=== PATIENT | male | born 1970 | race Caucasian/White ===

== ENCOUNTER 2024-07-17 18:37 | Inpatient (IN) ==
[2024-07-17] MEDS: Dextrose 50% Syringe 50 ml 25 GM/50 ML SYRINGE IV PUSH PRN (18:40)
[2024-07-17] MEDS: Norepinephrine 4 MG/250mL D5W 4,000 MCG/250 ML BAG IV SCH (19:05)
[2024-07-17 19:25] LABS: Hematocrit 31.9 % (38-53); Hemoglobin 10.9 g/dL (13.2-16.3); Mean Corpuscular Hemoglobin 34.2 pg (27-33); Mean Corpuscular Hgb Conc 34.3 g/dL (31-36); Mean Corpuscular Volume 99.7 fL (80-97); Red Cell Distribution Width 16.7 % (12-17); White Blood Count 9.3 10^3/uL (3.6-10.2)
[2024-07-17] MEDS: VASOPRESSIN IVPREMIX BTL 40 UNIT/100 ML BTL IV ONE (19:28)
[2024-07-17] MEDS: VASOPRESSIN IVPREMIX BTL 40 UNIT/100 ML BTL IV SCH (19:29)
[2024-07-17] MEDS: Piperacillin/Tazobac 3.375 BAG 3.375 GM/100 ML BAG IV ONE (19:39)
[2024-07-17 19:42] LABS: High Sens Troponin Baseline 10066 pg/mL (<20)
[2024-07-17 19:43] LABS: Activated Partial Thrombo Time 38.2 seconds (26.0-38.0); INR 2.43 (0.85-1.14)
[2024-07-17] MEDS ORDERED: Zosyn per Pharmacy NOTE FOLLOW UP SCH (20:00)
[2024-07-17] MEDS ORDERED: Vancomycin per Pharmacy 1 EA NOTE FOLLOW UP SCH (20:00)
[2024-07-17 20:12] LABS: Anion Gap 20 mmol/L (2-16); Blood Urea Nitrogen 12 mg/dL (6-24); CO2 Carbon Dioxide 14 mmol/L (22-32); Calcium 7.2 mg/dL (8.6-10.3); Chloride 102 mmol/L (101-111); Creatinine, Serum 2.12 mg/dL (0.67-1.17); Glucose 109 mg/dL (70-100); Sodium 136 mmol/L (135-145); eGFR CKD-EPI 36.8 (>60)
[2024-07-17 20:13] LABS: ALT 341 U/L (7-52); Albumin 3.1 g/dL (3.5-5.7); Albumin/Globulin Ratio 1.2 (1-3); Alkaline Phosphatase 142 U/L (35-149); Globulin 2.5 g/dL (2-4); Magnesium 2.2 mg/dL (1.9-2.7); Total Bilirubin 10.2 mg/dL (0.2-1.0); Total Protein 5.6 g/dL (6.4-8.9)
[2024-07-17 20:23] LABS: Resp Rate 25
[2024-07-17] MEDS: Pantoprazole VIAL 40 MG VIAL IV SCH (20:23)
[2024-07-17 20:25] LABS: PCO2 Arterial 31 mmHg (35-45); PO2 Arterial 108 mmHg (80-100)
[2024-07-17 20:37] LABS: ABS Lymphocytes 0.4 10^3/uL (1.0-4.8); ABS Monocytes 0.5 10^3/uL (0.0-1.1); ABS Neutrophils 8.3 10^3/uL (1.5-7.6); ABS Nucleated RBC 0.06 10^3/ul; Anisocytosis 1+; Eosinophil % 0.1 %; Lymphocyte % 4.7 %; Mean Platelet Volume 9.3 fL (7.5-11.2); Nucleated Red Blood Cells % 0.7 %/100WBC (0.0-0.8); Platelet Count 24 10^3/uL (150-450); Polychromasia 1+; Target Cells 1+
[2024-07-17] MEDS: Hydrocortisone INJ 100 MG/2ML 2 ML VIAL IV ONE (20:38)
[2024-07-17 21:11] LABS: Phosphorus 7.7 mg/dL (2.5-5.0); Potassium Redraw 4.7 mmol/L (3.5-5.0)
[2024-07-17] MEDS: Vancomycin 1,500 MG in NS 0.9% 250 ml 250 ML IVPB ONE (21:13)
[2024-07-17] MEDS ORDERED: Thiamine 100 MG/ML 2 ml VIAL (200 mg) IV SCH (22:00)
[2024-07-17 22:20] LABS: Hematocrit 35.5 % (38-53); Hemoglobin 11.7 g/dL (13.2-16.3); Mean Corpuscular Hemoglobin 32.9 pg (27-33); Mean Corpuscular Hgb Conc 32.9 g/dL (31-36); Mean Corpuscular Volume 99.8 fL (80-97); Platelet Count 26 10^3/uL (150-450); Red Blood Count 3.56 10^6/uL (4.06-5.63); Red Cell Distribution Width 16.9 % (12-17); White Blood Count 8.7 10^3/uL (3.6-10.2)
[2024-07-17] MEDS ORDERED: Midazolam 5 mg/5 ml VIAL 1 mg/ml 5 ml VIAL (5 mg) IV SLOW PU PRN (22:31)
[2024-07-17] MEDS: Chlorhexidine MOUTHWASH 0.12% 15 ML UDC TOPICAL SCH (22:33)
[2024-07-17 22:42] LABS: ABS Lymphocytes 0.4 10^3/uL (1.0-4.8); ABS Monocytes 0.4 10^3/uL (0.0-1.1); ABS Neutrophils 7.9 10^3/uL (1.5-7.6); ABS Nucleated RBC 0.07 10^3/ul; Eosinophil % 0.2 %; Nucleated Red Blood Cells % 0.8 %/100WBC (0.0-0.8)
[2024-07-17] MEDS: Phytonadione IV (Adult) 10 MG in NS 0.9% 50 ML 50 ML IV ONE (22:55)
[2024-07-17] MEDS: Folic Acid IV 1 MG in NS 0.9% 50 ML 50 ML IV SCH (23:44)
[2024-07-17] MEDS: Thiamine IV 100 MG in NS 0.9% 50 ML Q24H IV SCH (23:46)
[2024-07-18] MEDS: ZOSYN 3.375 GM Q8H per EXTENDED INFUSION IV SCH (00:43)
[2024-07-18 01:27] LABS: Hematocrit 34.2 % (38-53); Hemoglobin 11.4 g/dL (13.2-16.3); Mean Corpuscular Hemoglobin 33.3 pg (27-33); Mean Corpuscular Hgb Conc 33.2 g/dL (31-36); Mean Corpuscular Volume 100.3 fL (80-97); Red Blood Count 3.41 10^6/uL (4.06-5.63); Red Cell Distribution Width 16.8 % (12-17); White Blood Count 10.3 10^3/uL (3.6-10.2)
[2024-07-18 01:28] LABS: ABS Lymphocytes 0.2 10^3/uL (1.0-4.8); ABS Monocytes 0.6 10^3/uL (0.0-1.1); ABS Neutrophils 9.5 10^3/uL (1.5-7.6); ABS Nucleated RBC 0.09 10^3/ul; Eosinophil % 0.1 %; Mean Platelet Volume 9.7 fL (7.5-11.2); Nucleated Red Blood Cells % 0.9 %/100WBC (0.0-0.8); Platelet Count 25 10^3/uL (150-450)
[2024-07-18 01:50] VITALS: BP 98/60
[2024-07-18] MEDS ORDERED: D10W 1000 ml BAG 1,000 ML IV SCH (02:00)
[2024-07-18] MEDS: Polyethyl Glycol/Propylene Gly OPHTH.SOLN BOTH EYES SCH (02:20)
[2024-07-18] MEDS: D10W 1000 ml BAG 1,000 ML IV SCH (02:20)
[2024-07-18] MEDS: Octreotide Acetate 50 MCG in NS 0.9% 50 ML 50 ML IV ONE (03:46)
[2024-07-18] MEDS: Octreotide Acetate 500 MCG in NS 0.9% 100 ml BAG 100 ML IV SCH (04:01)
[2024-07-18 04:38] LABS: Resp Rate 25
[2024-07-18 04:40] LABS: PCO2 Arterial 33 mmHg (35-45); PO2 Arterial 75 mmHg (80-100)
[2024-07-18 04:46] LABS: ABS Lymphocytes 0.3 10^3/uL (1.0-4.8); ABS Neutrophils 10.7 10^3/uL (1.5-7.6); ABS Nucleated RBC 0.16 10^3/ul; Eosinophil % 0.2 %; Hematocrit 33.8 % (38-53); Lymphocyte % 2.8 %; Mean Corpuscular Hemoglobin 32.6 pg (27-33); Mean Corpuscular Hgb Conc 32.4 g/dL (31-36); Mean Corpuscular Volume 100.7 fL (80-97); Mean Platelet Volume 9.8 fL (7.5-11.2); Nucleated Red Blood Cells % 1.3 %/100WBC (0.0-0.8); Platelet Count 28 10^3/uL (150-450); Red Blood Count 3.36 10^6/uL (4.06-5.63); Red Cell Distribution Width 17.1 % (12-17); White Blood Count 12.1 10^3/uL (3.6-10.2)
[2024-07-18] MEDS: D5LR 1000 ml BAG 1,000 ML IV SCH (05:15)
[2024-07-18] MEDS: Hydrocortisone INJ 100 MG/2ML 2 ML VIAL IV SCH (05:21)
[2024-07-18 05:25] LABS: Calcium 6.5 mg/dL (8.6-10.3); Creatinine, Serum 3.29 mg/dL (0.67-1.17); Potassium 5.4 mmol/L (3.5-5.0); eGFR CKD-EPI 21.7 (>60)
[2024-07-18 05:29] LABS: Albumin 3.2 g/dL (3.5-5.7); Albumin/Globulin Ratio 1.2 (1-3); Globulin 2.6 g/dL (2-4); Magnesium 2.2 mg/dL (1.9-2.7); Phosphorus 8.9 mg/dL (2.5-5.0); Total Bilirubin 14.7 mg/dL (0.2-1.0); Total Protein 5.8 g/dL (6.4-8.9)
[2024-07-18 07:42] LABS: INR 3.54 (0.85-1.14)
[2024-07-18 08:25] LABS: Blood Urea Nitrogen 19 mg/dL (6-24); CO2 Carbon Dioxide 17 mmol/L (22-32); Calcium 6.3 mg/dL (8.6-10.3); Chloride 100 mmol/L (101-111); Creatinine, Serum 3.69 mg/dL (0.67-1.17); Glucose 92 mg/dL (70-100); Sodium 136 mmol/L (135-145); eGFR CKD-EPI 18.9 (>60)
[2024-07-18 08:26] LABS: Magnesium 2.2 mg/dL (1.9-2.7)
[2024-07-18 08:27] LABS: Anion Gap 19 mmol/L (2-16)
[2024-07-18] MEDS: Sulfur Hexaflouride MICROSPHR 25 MG VIAL IV PRN (08:57)
[2024-07-18] MEDS: Phytonadione IV (Adult) 10 MG in NS 0.9% 50 ML 50 ML IV ONE (09:39)
[2024-07-18 09:55] LABS: Hematocrit 34.2 % (38-53); Hemoglobin 11.1 g/dL (13.2-16.3); Mean Corpuscular Hemoglobin 33.1 pg (27-33); Mean Corpuscular Hgb Conc 32.4 g/dL (31-36); Mean Corpuscular Volume 102.3 fL (80-97); Red Blood Count 3.34 10^6/uL (4.06-5.63); Red Cell Distribution Width 17.4 % (12-17); White Blood Count 13.4 10^3/uL (3.6-10.2)
[2024-07-18 10:01] LABS: Mean Platelet Volume 9.7 fL (7.5-11.2); Platelet Count 31 10^3/uL (150-450)
[2024-07-18 10:32] LABS: ABS Lymphocytes 0.4 10^3/uL (1.0-4.8); ABS Monocytes 1.1 10^3/uL (0.0-1.1); ABS Neutrophils 11.9 10^3/uL (1.5-7.6); ABS Nucleated RBC 0.25 10^3/ul; Macrocytosis 1+; Nucleated Red Blood Cells % 1.9 %/100WBC (0.0-0.8)
[2024-07-18 11:26] LABS: Osmolality Serum 308 mOsm/kg (275-295)
[2024-07-18] MEDS: Dextrose 50% Syringe 50 ml 25 GM/50 ML SYRINGE IV PUSH ONE ×2 (11:42→17:10)
[2024-07-18] MEDS: CALCIUM GLUCONATE 1GM/50ML NS 1 GM/50 ML BAG IV ONE ×2 (11:47→16:55)
[2024-07-18] MEDS: Sodium Bicarbonate 8.4% IV 150 MEQ in D5W 1000 ML BAG 850 ML IV SCH (11:49)
[2024-07-18 13:23] LABS: Folate > 20.00 ng/mL (5.90-24.80)
[2024-07-18 13:24] LABS: Vitamin B12 > 1450 pg/mL (180-914)
[2024-07-18] MEDS ORDERED: Vancomycin 1,500 MG in NS 0.9% 250 ml 250 ML IVPB SCH (16:00)
[2024-07-18 16:13] LABS: ABS Lymphocytes 0.4 10^3/uL (1.0-4.8); ABS Neutrophils 11.8 10^3/uL (1.5-7.6); ABS Nucleated RBC 0.31 10^3/ul; Eosinophil % 0.1 %; Hematocrit 32.4 % (38-53); Hemoglobin 10.5 g/dL (13.2-16.3); Lymphocyte % 3.2 %; Mean Corpuscular Hemoglobin 33.6 pg (27-33); Mean Corpuscular Hgb Conc 32.5 g/dL (31-36); Mean Corpuscular Volume 103.4 fL (80-97); Mean Platelet Volume 9.4 fL (7.5-11.2); Nucleated Red Blood Cells % 2.4 %/100WBC (0.0-0.8); Platelet Count 31 10^3/uL (150-450); Red Blood Count 3.13 10^6/uL (4.06-5.63); Red Cell Distribution Width 17.6 % (12-17); White Blood Count 13.2 10^3/uL (3.6-10.2)
[2024-07-18 16:49] LABS: Albumin/Globulin Ratio 1.2 (1-3); Creatinine, Serum 4.72 mg/dL (0.67-1.17); Globulin 2.5 g/dL (2-4); Magnesium 2.2 mg/dL (1.9-2.7); Phosphorus 10.9 mg/dL (2.5-5.0); Total Bilirubin 16.1 mg/dL (0.2-1.0); Total Protein 5.5 g/dL (6.4-8.9); eGFR CKD-EPI 14.1 (>60)
[2024-07-19 00:19] LABS: Hematocrit 31.6 % (38-53); Hemoglobin 10.2 g/dL (13.2-16.3); Mean Corpuscular Hemoglobin 32.8 pg (27-33); Mean Corpuscular Hgb Conc 32.2 g/dL (31-36); Mean Platelet Volume 10.2 fL (7.5-11.2); Platelet Count 34 10^3/uL (150-450); Red Cell Distribution Width 17.7 % (12-17); White Blood Count 14.1 10^3/uL (3.6-10.2)
[2024-07-19 00:40] LABS: ABS Lymphocytes 0.6 10^3/uL (1.0-4.8); ABS Monocytes 1.4 10^3/uL (0.0-1.1); ABS Neutrophils 12.1 10^3/uL (1.5-7.6); Anisocytosis 1+; Hypochromasia 1+; Macrocytosis 1+; Nucleated Red Blood Cells % 2.8 %/100WBC (0.0-0.8)
[2024-07-19 00:53] LABS: Albumin 2.9 g/dL (3.5-5.7); Albumin/Globulin Ratio 1.2 (1-3); Calcium 5.9 mg/dL (8.6-10.3); Creatinine, Serum 5.53 mg/dL (0.67-1.17); Globulin 2.4 g/dL (2-4); Phosphorus 10.8 mg/dL (2.5-5.0); Potassium 5.8 mmol/L (3.5-5.0); Total Bilirubin 16.8 mg/dL (0.2-1.0); Total Protein 5.3 g/dL (6.4-8.9); eGFR CKD-EPI 11.6 (>60)
[2024-07-19] MEDS: CALCIUM GLUCONATE 1GM/50ML NS 1 GM/50 ML BAG IV SCH (01:05)
[2024-07-19] MEDS: Vancomycin Random Level NOTE FOLLOW UP ONE (05:38)
[2024-07-19] MEDS: Calcium Gluconate 4 GM in NS 0.9% 250 ml 250 ML IVPB ONE (05:38)
[2024-07-19 05:48] LABS: ABS Lymphocytes 0.6 10^3/uL (1.0-4.8); ABS Monocytes 1.8 10^3/uL (0.0-1.1); ABS Neutrophils 13.2 10^3/uL (1.5-7.6); ABS Nucleated RBC 0.49 10^3/ul; Hematocrit 30.6 % (38-53); Mean Corpuscular Hemoglobin 33.4 pg (27-33); Mean Corpuscular Hgb Conc 32.6 g/dL (31-36); Mean Corpuscular Volume 102.4 fL (80-97); Mean Platelet Volume 10.4 fL (7.5-11.2); Nucleated Red Blood Cells % 3.1 %/100WBC (0.0-0.8); Platelet Count 38 10^3/uL (150-450); Red Blood Count 2.99 10^6/uL (4.06-5.63); Red Cell Distribution Width 18.1 % (12-17); White Blood Count 15.7 10^3/uL (3.6-10.2)
[2024-07-19 06:05] LABS: Albumin 2.8 g/dL (3.5-5.7); Albumin/Globulin Ratio 1.2 (1-3); Calcium 5.8 mg/dL (8.6-10.3); Creatinine, Serum 5.46 mg/dL (0.67-1.17); Globulin 2.3 g/dL (2-4); Magnesium 1.9 mg/dL (1.9-2.7); Phosphorus 11.2 mg/dL (2.5-5.0); Total Bilirubin 16.8 mg/dL (0.2-1.0); Total Protein 5.1 g/dL (6.4-8.9); Vancomycin Random 10.8 mcg/mL; eGFR CKD-EPI 11.8 (>60)
[2024-07-19] MEDS: Norepinephrine 16 MG/250mL NS 16,000 MCG/250 ML BAG IV SCH (08:09)
[2024-07-19 08:32] LABS: Hematocrit 29.8 % (38-53); Hemoglobin 9.9 g/dL (13.2-16.3); Mean Corpuscular Hemoglobin 33.8 pg (27-33); Mean Corpuscular Hgb Conc 33.3 g/dL (31-36); Mean Corpuscular Volume 101.5 fL (80-97); Mean Platelet Volume 10.1 fL (7.5-11.2); Platelet Count 41 10^3/uL (150-450); Red Blood Count 2.94 10^6/uL (4.06-5.63); Red Cell Distribution Width 17.5 % (12-17); White Blood Count 15.6 10^3/uL (3.6-10.2)
[2024-07-19 09:50] LABS: INR 6.84 (0.85-1.14)
[2024-07-19 10:07] LABS: ABS Lymphocytes 0.5 10^3/uL (1.0-4.8); ABS Monocytes 1.6 10^3/uL (0.0-1.1); ABS Neutrophils 13.4 10^3/uL (1.5-7.6); ABS Nucleated RBC 0.52 10^3/ul; Lymphocyte % 3.5 %; Nucleated Red Blood Cells % 3.4 %/100WBC (0.0-0.8)
[2024-07-19] MEDS: Vancomycin 1,500 MG in NS 0.9% 250 ml 250 ML IVPB ONE (11:05)
[2024-07-19 12:30] LABS: Hematocrit 32.4 % (38-53); Hemoglobin 10.4 g/dL (13.2-16.3); Mean Corpuscular Hemoglobin 33.1 pg (27-33); Mean Corpuscular Hgb Conc 32.2 g/dL (31-36); Mean Corpuscular Volume 102.8 fL (80-97); Mean Platelet Volume 9.6 fL (7.5-11.2); Platelet Count 50 10^3/uL (150-450); Red Blood Count 3.15 10^6/uL (4.06-5.63); White Blood Count 18.4 10^3/uL (3.6-10.2)
[2024-07-19 12:38] LABS: Albumin 2.8 g/dL (3.5-5.7); Albumin/Globulin Ratio 1.3 (1-3); Creatinine, Serum 6.17 mg/dL (0.67-1.17); Globulin 2.2 g/dL (2-4); Magnesium 1.9 mg/dL (1.9-2.7); Potassium 6.2 mmol/L (3.5-5.0); Total Bilirubin 17.2 mg/dL (0.2-1.0); eGFR CKD-EPI 10.2 (>60)
[2024-07-19 12:47] LABS: ABS Basophils 0.1 10^3/uL (0.0-0.1); ABS Lymphocytes 0.6 10^3/uL (1.0-4.8); ABS Monocytes 2.4 10^3/uL (0.0-1.1); ABS Neutrophils 15.3 10^3/uL (1.5-7.6); ABS Nucleated RBC 0.73 10^3/ul; Eosinophil % 0.2 %; Lymphocyte % 3.5 %
[2024-07-19 14:04] LABS: Albumin 2.8 g/dL (3.5-5.7); Albumin/Globulin Ratio 1.2 (1-3); Calcium 5.7 mg/dL (8.6-10.3); Creatinine, Serum 6.81 mg/dL (0.67-1.17); Globulin 2.4 g/dL (2-4); Potassium 5.7 mmol/L (3.5-5.0); Total Bilirubin 18.2 mg/dL (0.2-1.0); Total Protein 5.2 g/dL (6.4-8.9); eGFR CKD-EPI 9.1 (>60)
[2024-07-19] MEDS ORDERED: LORazepam 2 mg VIAL 1 ml IV PUSH PRN (15:03)
[2024-07-19] MEDS ORDERED: Ondansetron 4 mg VIAL 2 MG/ML 2 ml VIAL IV PRN (15:03)
[2024-07-19] MEDS ORDERED: HYDROmorphone 1 MG/1 ML SYRINGE IV PRN (15:04)
[2024-07-19] MEDS ORDERED: ZOSYN 3.375 GM Q12H per EXTENDED INFUSION IV SCH (20:00)
[2024-07-20] MEDS ORDERED: Vancomycin Random Level NOTE FOLLOW UP ONE (06:00)
[2024-07-20] MEDS ORDERED: Vancomycin Trough Check NOTE FOLLOW UP ONE (15:30)
== END 2024-07-19 16:12 | disposition expired | DRG 242 ==
LOC: ICU 18:37
PROVIDERS: ADMIT Psychiatry & Neurology Neurology; ATTEND Internal Medicine